=== PATIENT | female | born 1970 | race Caucasian/White ===

== ENCOUNTER 2022-03-01 13:01 | Emergency (ER) | payer OTHER ==
[2022-03-01] MEDS ORDERED: SODIUM CHLORIDE 1,000 ML IV STA (13:09)
[2022-03-01 13:49] VITALS: BP 154/102; PULSE 72; RESP 18; TEMP 98.2; BMI 28.3
[2022-03-01 14:16] LABS: HEMATOCRIT 35.8 % (32.4-45.2); HEMOGLOBIN 12.7 G/dL (10.7-15.3); MCH 31.3 pg (25.7-33.7); MCHC 35.5 g/dl (32.0-36.0); MEAN CELL VOLUME 88.1 fl (80-96); MEAN PLT VOLUME 8.3 fl (7.5-11.1); PLATELET COUNT 277.8 10^3/uL (134-434); RBC 4.06 10^6/uL (3.60-5.2); RDW 14.1 % (11.6-15.6); WHITE BLOOD COUNT 6.2 10^3/uL (4.0-10.8)
[2022-03-01 14:16] LABS: ALBUMIN 4.2 g/dl (3.4-5.0); ALK PHOS 71 U/L (45-117); ANION GAP 5 MMOL/L (8-16); BILIRUBIN,TOTAL 0.9 mg/dl (0.2-1); CALCIUM 9.3 mg/dl (8.5-10); CHLORIDE 103 mmol/L (98-107); CO2 27 mmol/L (21-32); CREATININE 0.8 mg/dl (0.55-1.3); GLUCOSE,RANDOM 90 mg/dl (74-106); MAGNESIUM 2.1 mg/dL (1.8-2.4); SGOT/AST 21 U/L (15-37); SGPT/ALT 17 U/L (13-61); SODIUM 135 mmol/L (136-145); TOT PROT 7.2 g/dl (6.4-8.2)
[2022-03-01 14:40] LABS: PLATELET ESTIMATE ADEQUATE
== END 2022-03-01 14:51 | disposition home or self-care (01) ==
LOC: FER 13:01
PROC: 3E0337Z Introduction of Electrolytic and Water Balance Substance into Peripheral Vein, Percutaneous Approach (ICD-10-PCS; principal; 2022-03-01)
DX: R07.9 Chest pain, unspecified (principal)
CPT/HCPCS: 36415; 71045-TC-FY; 80053; 82550; 83735; 84484; 85027; 93005; 99284-25